=== PATIENT | female | born 1965 | race Caucasian/White ===

== ENCOUNTER 2019-12-02 11:27 | Inpatient (IN) | payer OTHER ==
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
[2019-12-02 12:01] LABS: Basophils # (A) 0.1 k/uL (0-0.2); Basophils % (A) 1 %; Eosinophils % (A) 0 %; Lymphocytes # (A) 1.8 k/uL (1.0-4.8); Lymphocytes % (A) 20 %; MCH 29.5 pg (25.0-35.0); MCHC 33.3 g/dL (31.0-37.0); MCV 88.6 fL (80.0-100.0); Monocytes # (A) 0.6 k/uL (0-1.0); Monocytes % (A) 6 %; Neutrophils # (A) 6.4 k/uL (1.3-7.7); Neutrophils % (A) 71 %; Platelet Count 317 k/uL (150-450); RDW 12.7 % (11.5-15.5)
[2019-12-02 12:06] LABS: ALT 24 U/L (4-49); AST 37 U/L (17-59); African American GFR (CKD) >90 (>60 ml/min/1.73 sqM); Alcohol <10 mg/dL; Alkaline Phosphatase 78 U/L (38-126); Anion Gap 13 mmol/L; Blood Urea Nitrogen 16 mg/dL (9-20); Calcium 9.9 mg/dL (8.4-10.2); Carbon Dioxide 22 mmol/L (22-30); Chloride 105 mmol/L (98-107); Glucose 160 mg/dL (74-99); Non-African American GFR(CKD) >90 (>60 ml/min/1.73 sqM); Potassium 3.5 mmol/L (3.5-5.1); Sodium 140 mmol/L (137-145); Total Bilirubin 0.9 mg/dL (0.2-1.3); Total Protein 7.7 g/dL (6.3-8.2)
[2019-12-02] MEDS ORDERED: LORazepam 2 MG/ML INJ IM STA (12:24)
[2019-12-02] MEDS ORDERED: HALOPERIDOL LACTATE 5 MG/ML 1 ML VIAL IM STA (13:07)
[2019-12-02] MEDS ORDERED: diphenhydrAMINE 50 MG/ML 1 ML VIAL IM STA (13:15)
[2019-12-03 09:34] LABS: Amphetamine Screen,Urine Not Detected (NotDetected); Barbiturate Screen,Urine Not Detected (NotDetected); Benzodiazepines Screen,Urine Detected (NotDetected); Cocaine Screen,Urine Not Detected (NotDetected); Methadone Screen, Urine Not Detected (NotDetected); Opiate Screen,Urine Not Detected (NotDetected); Oxycodone Screen, Urine Not Detected (NotDetected); Phencyclidine Screen,Urine Not Detected (NotDetected); Tricyclic Antidepressant,Urine Not Detected (NotDetected); Urn Cannabinoid Scrn Not Detected (NotDetected)
[2019-12-03] MEDS ORDERED: LORazepam 1 MG TAB PO PRN (10:22)
[2019-12-03] MEDS ORDERED: MAGNESIUM HYDROXIDE 2,400 MG/10 ML CUP PO PRN (10:22)
[2019-12-03] MEDS ORDERED: ACETAMINOPHEN TAB 325 MG TAB PO PRN (10:22)
[2019-12-03] MEDS ORDERED: ZIPRASIDONE 20 MG VIAL IM PRN (10:22)
[2019-12-03] MEDS ORDERED: LORazepam 2 MG/ML INJ IM PRN (10:26)
[2019-12-03] MEDS: OLANZapine 5 MG TAB PO SCH ×3 (12:23→22:07)
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
[2019-12-04] MEDS: OLANZapine 5 MG TAB PO SCH (09:33)
[2019-12-04 09:39] LABS: Basophils % (A) 1 %; Eosinophils # (A) 0.1 k/uL (0-0.7); Eosinophils % (A) 2 %; HCT 40.5 % (34.0-46.0); HGB 12.8 gm/dL (11.4-16.0); Lymphocytes # (A) 1.4 k/uL (1.0-4.8); Lymphocytes % (A) 24 %; MCH 28.2 pg (25.0-35.0); MCHC 31.7 g/dL (31.0-37.0); MCV 88.8 fL (80.0-100.0); Mean Platelet Volume 8.7; Monocytes # (A) 0.4 k/uL (0-1.0); Monocytes % (A) 6 %; Neutrophils # (A) 3.9 k/uL (1.3-7.7); Neutrophils % (A) 66 %; Platelet Count 274 k/uL (150-450); RBC 4.56 m/uL (3.80-5.40); RDW 12.7 % (11.5-15.5); WBC 5.9 k/uL (3.8-10.6)
[2019-12-04 09:56] LABS: Potassium 3.8 mmol/L (3.5-5.1)
[2019-12-04 09:57] LABS: ALT 28 U/L (4-34); AST 46 U/L (14-36); African American GFR (CKD) >90 (>60 ml/min/1.73 sqM); Albumin 4.4 g/dL (3.5-5.0); Alkaline Phosphatase 64 U/L (38-126); Anion Gap 7 mmol/L; Blood Urea Nitrogen 9 mg/dL (7-17); Calcium 9.6 mg/dL (8.4-10.2); Carbon Dioxide 28 mmol/L (22-30); Chloride 101 mmol/L (98-107); Cholesterol 151 mg/dL (<200); Glucose 144 mg/dL (74-99); HDL Cholesterol 80 mg/dL (40-60); LDL Cholesterol,Calculated 62 mg/dL (0-99); Non-African American GFR(CKD) >90 (>60 ml/min/1.73 sqM); Sodium 136 mmol/L (137-145); Total Bilirubin 0.7 mg/dL (0.2-1.3); Triglycerides 44 mg/dL (<150)
[2019-12-04] MEDS: risperiDONE 1 MG TAB PO SCH ×2 (11:34→22:33)
--- NOTE | 2019-12-04 12:46 | P.PN ---
Progress Note - Text Progress Note Date: 12/04/19 Interval History: Patient was seen near the nurse's desk filling out paperwork and was directable and agreeable to speak with contract technical writer in the office. Was noticed to have tissue paper stuffed inside patient's ears. When asked about the tissue paper inside of years patient states that "it's too loud out there and I can concentrate". Patient was fairly illogical, loose with associations and rambled. She appeared to have multiple loosely formed delusions and also spoke about needing to "take over the state". She claims that she came from [place] however states that she has no plans of going back. She claims that she has never been hospitalized in a psychiatric unit. Patient was speaking about "sending a smoke signal" however states that nobody received it. She had several questions for contract technical writer about her diagnosis and also her treatment along with her discharge plan. Patient claims that she has never had a computed tomography scan of her brain before. She claims that she was able to sleep significantly throughout the day and night and claimed to feel fairly lethargic. Patient was agreeable to start a new medication and contract technical writer explained risks and side effects of Risperdal along with the benefits. She claims that she has a fair appetite. At this time patient denies any suicidal or homical ideations, intent or plan. Patient denies any auditory, visual hallucinations. Patient is endorsing significant paranoia. Mental Status Exam: General Appearance: Patient appears to be overweight, stated age is alert, more directable, times and cooperate. Poor hygiene and grooming. Behavior: Patient is calmly seated without any agitated behavior. Speech: Patient's speech is fluent and nonpressured. Rambles. Mood/Affect: Mood is improving mildly, affect is congruent and constricted. Suicidality/Homicidality: Patient denies having any suicidal or homicidal ideation intent or plan. Perceptions: Patient denies any visual hallucinations and denies any auditory hallucinations Though content/process: Patient is loose in associations, illogical, bizarre and endorsing several delusions. Patient is also endorsing paranoia. Memory and concentration: AOX3, grossly intact for the purposes of this session Judgment and insight: Poor, Improving mildly Assessment Psychosis unspecified Plan: -Patient continues to meet criteria for inpatient psychiatric admission for symptom stabilization and safety. Patient has signed adult voluntary form and medication consent and was placed in patient's chart. -Medications: Discontinue Zyprexa due to oversedation and patient is agreeable to start Risperdal 1 mg twice a day for psychosis. -When necessary Ativan and Geodon for agitation/aggression. -NRT - not needed as patient does not smoke. -Ordered computed tomography scan brain for first episode of psychosis. Ordered syphilis and B12. Will order T4 following a elevated TSH. -SW on board for discharge planning. Encouraged the patient to participate in milieu. construction pit worker to attempt to gather further collateral history from patient's .
--- NOTE | 2019-12-04 13:03 | CT ---
EXAMINATION TYPE: CT brain wo con DATE OF EXAM: 12/04/2019 HISTORY: 1st episode psychosis CT DLP: 995.3 mGycm. Automated Exposure Control for Dose Reduction was Utilized. TECHNIQUE: CT scan of the head is performed without contrast. COMPARISON: None FINDINGS: There is no acute intracranial hemorrhage, midline shift, or mass effect identified. Brain volume is age appropriate. The ventricles, sulci, and cisterns are normal in size and configuration. No extra-axial fluid collection. Bones and extracranial soft tissues are intact. The globes are gross ly symmetric. Visualized sinuses and mastoid air cells are clear. IMPRESSION: No acute intracranial hemorrhage, midline shift, or mass effect.
[2019-12-04 18:14] LABS: Hemoglobin A1C 5.1 % (4.0-6.0)
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
[2019-12-05] MEDS: risperiDONE 1 MG TAB PO SCH (09:32)
--- NOTE | 2019-12-05 11:33 | P.PN ---
Progress Note - Text Progress Note Date: 12/05/19 Interval History: Patient was seen sitting on the floor in the middle of her room writing on her box with her belongings and it and was directable and agreeable to speak with senior mortgage underwriter in the office. Patient appeared to be mildly calmer today however continues to ramble and is tangential and continues to endorse loosely formed delusions. 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 Patient's computed tomography scan results were reviewed with her and patient claims that "I'm glad that you did it because now approves that I'm fine and nothing's wrong with me". She continues to display poor insight and judgment however is agreeable to continue with her medications. Patient was agreeable to start Depakote today and have her Risperdal increased. She states that she was able to sleep last night throughout the night with no issues. She claims that her mood has been gradually improving and she claims to be "thinking positively". She continues to respond bizarrely at times to senior mortgage underwriter's questions. She claims that she has a fair appetite. At this time patient denies any suicidal or homical ideations, intent or plan. Patient denies any auditory, visual hallucinations. Patient is denying any paranoia today. Mental Status Exam: General Appearance: Patient appears to be overweight, stated age is alert, more directable, at times attempts to cooperate. Improving hygiene and grooming. Behavior: Patient is calmly seated without any agitated behavior. Speech: Patient's speech is fluent and nonpressured. Rambles. Mood/Affect: Mood is improving mildly, affect is congruent Suicidality/Homicidality: Patient denies having any suicidal or homicidal ideation intent or plan. Perceptions: Patient denies any visual hallucinations and denies any auditory hallucinations Though content/process: Patient is loose in associations, illogical, bizarre and endorsing several delusions, improving mildly. Flight of ideas. Memory and concentration: AOX3, grossly intact for the purposes of this session Judgment and insight: Poor, Improving mildly Assessment: Psychosis unspecified Plan: -Patient continues to meet criteria for inpatient psychiatric admission for symptom stabilization and safety. Patient has signed adult voluntary form and medication consent and was placed in patient's chart. -Medications: Increased Risperdal 1 mg daily +2 mg daily at bedtime for psychosis. I added Depakote 250 mg twice a day for mood stabilization. -When necessary Ativan and Geodon for agitation/aggression. -NRT - not needed as patient does not smoke. -Computed tomography scan brain for first episode of psychosis completed on 12/04/2019 - negative for any acute changes. syphilis - negative, B12 - WNL. elevated TSH, however free T4 is normal. -SW on board for discharge planning. Encouraged the patient to participate in milieu. park worker supervisor to attempt to gather further collateral history from patient's .
[2019-12-05] MEDS: DIVALPROEX 250 MG TABLET.DR PO SCH ×2 (14:09→21:08)
[2019-12-05] MEDS: risperiDONE 2 MG TAB PO SCH (21:09)
[2019-12-06] MEDS ORDERED: risperiDONE 1 MG TAB PO SCH (09:00)
[2019-12-06] MEDS: DIVALPROEX 250 MG TABLET.DR PO SCH ×2 (09:34→20:39)
--- NOTE | 2019-12-06 13:33 | P.PN ---
Progress Note - Text Progress Note Date: 12/06/19 Interval History: Patient was seen this morning in her room talking with her roommate and was di rectable and agreeable to speak with keno writer/runner in the office. Patient appeared to be mildly calmer today and appeared to be mildly more appropriately with keno writer/runner. Patient continues to be tangential and bizarre in her thought content. She claims that she did not take her medications yesterday or this morning and states that "I'm refusing them until I talk with my father". Patient expressed her concerns about the medications and claims that "I feel better off of them". She continues to demonstrate poor insight and judgment. He continues to speak about her "mission" and spoke repeatedly about a house that she needs to go to. She was loose in association and illogical. Patient was also labile in her affect and began crying when speaking about another patient on the unit and states that "she reminds me of my mother and my 2 sisters and the pain that they went through". She claims that she has a fair appetite. At this time patient denies any suicidal or homical ideations, intent or plan. Patient denies any auditory, visual hallucinations. Patient is denying any paranoia today. Mental Status Exam: General Appearance: Patient appears to be overweight, stated age is alert, more directable, bizarre today. Improving hygiene and grooming. Behavior: Patient is calmly seated without any agitated behavior. Bizarre Speech: Patient's speech is fluent and nonpressured. Rambles. Mood/Affect: Mood is improving mildly, affect is congruent Suicidality/Homicidality: Patient denies having any suicidal or homicidal ideation intent or plan. Perceptions: Patient denies any visual hallucinations and denies any auditory hallucinations Though content/process: Patient is loose in associations, illogical, bizarre and endorsing several delusions, improving mildly. Memory and concentration: AOX3, grossly intact for the purposes of this session Judgment and insight: Poor, Improving mildly Assessment: Psychosis unspecified Plan: -Patient continues to meet criteria for inpatient psychiatric admission for symptom stabilization and safety. Patient has signed adult voluntary form and medication consent and was placed in patient's chart. -Medications: Continue with Risperdal 2 mg HS + 1mg daily for psychosis. Continue with Depakote 250 mg twice a day for mood stabilization. Patient has refused medications for the past 2 days, encouraged patient to take medications. -When necessary Ativan and Geodon for agitation/aggression. -NRT - not needed as patient does not smoke. -Computed tomography scan brain for first episode of psychosis completed on 12/04/2019 - negative for any acute changes. syphilis - negative, B12 - WNL. elevated TSH, however free T4 is normal. -SW on board for discharge planning. Encouraged the patient to participate in milieu. The patient continues to refuse medications then we'll need to file for involuntary process.
[2019-12-06] MEDS: risperiDONE 2 MG TAB PO SCH (20:39)
[2019-12-06] MEDS ORDERED: DIVALPROEX 500 MG TABLET.DR PO SCH (21:00)
[2019-12-07] MEDS ORDERED: risperiDONE 2 MG TAB PO SCH (09:00)
[2019-12-07] MEDS: DIVALPROEX 250 MG TABLET.DR PO SCH ×2 (10:20→20:52)
[2019-12-07] MEDS: risperiDONE 1 MG TAB PO SCH (10:20)
--- NOTE | 2019-12-07 10:37 | P.PN ---
Progress Note - Text Progress Note Date: 12/07/19 Interval History: Patient was seen this morning sitting in on group and was directable and agree able to speak with health underwriter in the office. Patient was walking around with her notes and also her books and case full of different things. She claims that "this is my toolbox I need everywhere". Patient appeared to be mildly calmer today and appeared to be mildly more appropriately with health underwriter. Patient continues to be tangential and bizarre in her thought content. Patient appeared to endorse improvement in her insight and judgment and claims that "I know you're trying to help me stay safe and him taking medications now". Patient claims that she is doing better on the medications now and claims that she will continue to take these medications as prescribed. She continues to speak about her "mission" and spoke repeatedly about a house that she needs to go to and at times was bizarre. She was loose in association and illogical, which has been improving. She claims that she has a fair appetite. At this time patient denies any suicidal or homical ideations, intent or plan. Patient denies any auditory, visual hallucinations. Patient is denying any paranoia today. Mental Status Exam: General Appearance: Patient appears to be overweight, stated age is alert, more directable, bizarre today, improving mildly. Improving hygiene and grooming. Behavior: Patient is calmly seated without any agitated behavior. Bizarre, more cooperative today. Speech: Patient's speech is fluent and nonpressured. Rambles. Mood/Affect: Mood is improving mildly, affect is congruent Suicidality/Homicidality: Patient denies having any suicidal or homicidal ideation intent or plan. Perceptions: Patient denies any visual hallucinations and denies any auditory hallucinations Though content/process: Patient is loose in associations, illogical, bizarre which is improving mildly. Memory and concentration: AOX3, grossly intact for the purposes of this session Judgment and insight: Poor, Improving mildly Assessment: Psychosis unspecified Plan: -Patient continues to meet criteria for inpatient psychiatric admission for symptom stabilization and safety. Patient has signed adult voluntary form and medication consent and was placed in patient's chart. -Medications: Continue with Risperdal 2 mg HS + 1mg daily for psychosis. Continue with Depakote 250 mg twice a day for mood stabilization. Patient is not taking her medications and will consider increasing dose tomorrow. -When necessary Ativan and Geodon for agitation/aggression. -NRT - not needed as patient does not smoke. -Computed tomography scan brain for first episode of psychosis completed on 12/04/2019 - negative for any acute changes. syphilis - negative, B12 - WNL. elevated TSH, however free T4 is normal. -SW on board for discharge planning. Encouraged the patient to participate in milieu. The patient is now taking her medications and will look at discharge planning . Hopefully the next 2-3 days.
[2019-12-07] MEDS: MAG HYDROX/AL HYDROX/SIMETH 30 ML CUP PO PRN ×2 (17:32→21:56)
[2019-12-07] MEDS: risperiDONE 2 MG TAB PO SCH (20:52)
[2019-12-08] MEDS: DIVALPROEX 250 MG TABLET.DR PO SCH (09:19)
[2019-12-08] MEDS: risperiDONE 1 MG TAB PO SCH ×2 (09:20→21:11)
[2019-12-08] MEDS: MAG HYDROX/AL HYDROX/SIMETH 30 ML CUP PO PRN (09:21)
[2019-12-08] MEDS ORDERED: ONDANSETRON 4 MG TAB PO PRN (12:21)
--- NOTE | 2019-12-08 12:45 | P.PN ---
Progress Note - Text Progress Note Date: 12/08/19 Interval History: Patient was seen this morning sorting through her belongings in her room and was directable and agreeable to speak with news writer in the office. Patient appeared to be calmer today and more polite with news writer and also more logical and goal oriented during conversation. Patient does however claimed that she is experiencing side effects from medications. She claims that she does feel somewhat drowsy during the day and also that the medications are making her nauseous. Patient continues to be tangential and bizarre in her thought content, however this is improving mildly. 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 Patient states that she will continue to take these medications as prescribed. She continues to speak about her "mission". She claims that she has a fair appetite. At this time patient denies any suicidal or homical ideations, intent or plan. Patient denies any auditory, visual hallucinations. Patient is denying any paranoia today. Mental Status Exam: General Appearance: Patient appears to be overweight, stated age is alert, more directable, improving mildly. Improving hygiene and grooming. Behavior: Patient is calmly seated without any agitated behavior. Bizarre, more cooperative today. Speech: Patient's speech is fluent and nonpressured. Rambles. Mood/Affect: Mood is improving mildly, affect is congruent Suicidality/Homicidality: Patient denies having any suicidal or homicidal ideation intent or plan. Perceptions: Patient denies any visual hallucinations and denies any auditory hallucinations Though content/process: Patient is loose in associations, illogical, bizarre which is improving mildly. Memory and concentration: AOX3, grossly intact for the purposes of this session Judgment and insight: Poor, Improving mildly Assessment: Psychosis unspecified Plan: -Patient continues to meet criteria for inpatient psychiatric admission for symptom stabilization and safety. Patient has signed adult voluntary form and medication consent and was placed in patient's chart. -Medications: Switched Risperdal 2.5 mg HS for psychosis and discontinued morning dose. Discontinued Depakote at this time as this may have been contr ibuting to patient's nausea. If patient continues to have nausea then will likely switch to first generation antipsychotic i.e. Prolixin over the weekend. -Added Zofran when necessary for nausea. -When necessary Ativan and Geodon for agitation/aggression. -NRT - not needed as patient does not smoke. -Computed tomography scan brain for first episode of psychosis completed on 12/04/2019 - negative for any acute changes. syphilis - negative, B12 - WNL. elevated TSH, however free T4 is normal. -SW on board for discharge planning. Encouraged the patient to participate in milieu. The patient is now taking her medications and will look at discharge planning. Hydro Station Operator spoke with patient's Wiley over the phone who states that he will be taking patient back to [place] when she is discharged for follow-up there. Hopefully discharge the next 2-3 days.
[2019-12-09 07:06] VITALS: RESP 16
--- NOTE | 2019-12-09 09:35 | P.PN ---
Progress Note - Text Progress Note Date: 12/09/19 Interval History: Patient was seen this morning after talking on the phone and near the nurse's desk and was directable and agreeable to speak with tech writer in the office. Patient appeared to be calmer today. Patient was also polite with tech writer today and appeared to be more logical and goal oriented during conversation. She claims that her mood and anxiety but improving. She also claims that her nausea has "calmed down" and has been taking the Zofran. She also claims that she had a bowel movement yesterday which is helped her. She claims that she has been in communication with her and is hoping for a possible Wednesday discharge. Patient claimed that she is going to groups and to mean take medications. She states that she was able to sleep throughout the night with no issues. She claims that she has a fair appetite. At this time patient denies any suicidal or homical ideations, intent or plan. Patient denies any auditory, visual hallucinations. Patient is denying any paranoia today. Mental Status Exam: General Appearance: Patient appears to be overweight, stated age is alert, more directable, improving mildly. Improving hygiene and grooming. Behavior: Patient is calmly seated without any agitated behavior. more cooperative today. Speech: Patient's speech is fluent and nonpressured. Rambles. Mood/Affect: Mood is improving mildly, affect is congruent Suicidality/Homicidality: Patient denies having any suicidal or homicidal ideation intent or plan. Perceptions: Patient denies any visual hallucinations and denies any auditory hallucinations Though content/process: Patient is more logical today, goal oriented. Denies any paranoia. Memory and concentration: AOX3, grossly intact for the purposes of this session Judgment and insight: Improving mildly Assessment: Psychosis unspecified Plan: -Patient continues to meet criteria for inpatient psychiatric admission for symptom stabilization and safety. Patient has signed adult voluntary form and medication consent and was placed in patient's chart. -Medications: continue with Risperdal 2.5 mg HS for psychosis and discontinued morning dose. -Continue with Zofran when necessary for nausea. -When necessary Ativan and Geodon for agitation/aggression. -NRT - not needed as patient does not smoke. -Computed tomography scan brain for first episode of psychosis completed on 12/04/2019 - negative for any acute changes. syphilis - negative, B12 - WNL. elevated TSH, however free T4 is normal. -SW on board for discharge planning. Encouraged the patient to participate in milieu. If patient continues to improve over the weekend than likely discharge wednesday.
[2019-12-09] MEDS: risperiDONE 1 MG TAB PO SCH (21:33)
--- NOTE | 2019-12-10 10:02 | P.PN ---
Progress Note - Text Progress Note Date: 12/10/19 Interval History: Patient was seen this morning sitting in on group participating and was direct able and agreeable to speak with customs entry writer in the office. Patient appeared to be calmer today. Patient was also polite with customs entry writer today and appeared to be more logical and goal oriented during conversation. She claims that her mood and anxiety have been improving. She states she did have a "burning in my throat" last night after dinner and was not sure if this was related to acid reflux or not. She states that after she took her nighttime medications it improved and she was able to sleep throughout the night soundly. She claims that she has been in communication with her and he came to visit her yesterday and is hoping for a possible Wednesday discharge. She also states that her sees a big improvement in her. Patient claimed that she is going to groups and to mean take medications. She claims that she has a fair appetite. At this time patient denies any suicidal or homical ideations, intent or plan. Patient denies any auditory, visual hallucinations. Patient is denying any paranoia today. Mental Status Exam: General Appearance: Patient appears to be overweight, stated age is alert, more directable, improving mildly. Improving hygiene and grooming. Behavior: Patient is calmly seated without any agitated behavior. more cooperative today. Speech: Patient's speech is fluent and nonpressured. Rambles. Mood/Affect: Mood is improving mildly, affect is congruent Suicidality/Homicidality: Patient denies having any suicidal or homicidal ideation intent or plan. Perceptions: Patient denies any visual hallucinations and denies any auditory hallucinations Though content/process: Patient is more logical today, goal oriented. Denies any paranoia. Memory and concentration: AOX3, grossly intact for the purposes of this session Judgment and insight: Improving mildly Assessment: Psychosis unspecified Plan: -Patient continues to meet criteria for inpatient psychiatric admission for symptom stabilization and safety. Patient has signed adult voluntary form and medication consent and was placed in patient's chart. -Medications: continue with Risperdal 2.5 mg HS for psychosis/mood stabilization -Continue with Zofran when necessary for nausea. -When necessary Ativan and Geodon for agitation/aggression. -NRT - not needed as patient does not smoke. -Computed tomography scan brain for first episode of psychosis completed on 12/04/2019 - negative for any acute changes. syphilis - negative, B12 - WNL. elevated TSH, however free T4 is normal. -SW on board for discharge planning. Encouraged the patient to participate in milieu. If patient continues to improve over the weekend than likely discharge wednesday.
[2019-12-10] MEDS: risperiDONE 1 MG TAB PO SCH (21:12)
[2019-12-11 06:42] VITALS: BP 119/76; PULSE 92; TEMP 98.2
[2019-12-11 07:18] LABS: HGB 12.8 gm/dL (11.4-16.0); RBC 4.33 m/uL (3.80-5.40)
[2019-12-11 07:19] LABS: HCT 38.4 % (34.0-46.0)
--- NOTE | 2019-12-11 09:15 | P.DS ---
Providers Date of admission: 12/03/19 10:19 Expected date of discharge: 12/11/19 Attending physician: Malachi Cordova MD Consults: 12/03/19 10:22 Consult Physician Routine Consulting Provider: Kelley Physician Consult Reason/Comments: medical management Do you want consulting provider notified?: Yes Primary care physician: Stated None - Discharge Diagnosis(es) (1) Unspecified psychosis Current Visit: Yes Status: Acute Priority: High Hospital Course: Admission HPI: The patient was completed by Dr. Mejía "the patient is a 54-year-old female who currently resides with her . The 2 of them live in [facility]. The patient has been in [place] for 2 weeks taking care of some state issues. She was brought to the ED for evaluation. The patient was confused and disorganized in thoughts and behavior. She was in family house and was breaking items in the house. Information was provided by the patient and her . The patient herself was somewhat disorganized in her thoughts. The patient has not had a psychiatric prior hospitalization. She has not had any past mental health intervention. She has not been on any psychotropic medications in the past. The patient has had a lot of high stress of grief situations over the last year or more. Both she and her described her as being a critical family member for the extended family. She has provided a lot of support for her grandmother mother and others. She apparently had lost her grandmother and another family member in the last year. It is also noted that her mother was hospitalized psychiatrically [place] and then ultimately suicide also the last year. The patient came up from her home in [place] to take care of estate issues with the grandmother's house. According to the she has been here for 2 weeks and for the first 3 days or so she deemed to be doing quite well. The says that she got quite involved in sorting out family heirlooms. This may have set off a lot of emotional things for her in that there were photographs and other important family memorabilia. The says this got to a point where the last 5 days she essentially has not slept at all. She got very overly involved in many details in the house. Apparently this somehow lead to the point where she became overwhelmed, confused and disorganized in her behavior to the point of smashing things in the house. It is unclear specifically what set off the final affect that got her to the hospital. Somehow the police were involved though the details are not clear. The was able to acknowledge that the patient was probably struggling with depression on and off for at least over a year. She has not sought treatment. In general she has been functioning well throughout the year. She has a lot of demands in her own work situation and she has been able to keep up with her work until the events of the last 2 weeks. It is unclear whether or not the patient has had any hallucinations. It does appear that she disordered thinking to the point of being delusional. It is difficult to clarify whether she has had any past issues in the realm of anxiety, panic or posttraumatic issues. She is not currently on any psychotropic medications. She is admitted for further evaluation." Hospital course: Upon admission to the unit patient was initially bizarre and disorganized. Patient was however directable and agreeable to commence treatment. Patient got along well with other patients on the unit and followed unit protocol. Patient was compliant with the medications initially however for 1 day patient did not take her medications. Patient did experience some minor side effects including nausea/vomiting from likely the Depakote. Patient was started on Risperdal and titrated up to a dose of 2.5 mg daily at bedtime for psychosis/mood st abilization.. Patient spoke of her stressors and engaged in therapy both group and individual. Patient was also seen by medical team for history and physical exam. Patient had a computed tomography scan of her brain which showed no acute intracranial hemorrhage midline shift or mass effect. Patient also had a syphilis test which was negative, B12 levels were within normal limit and patient also had an elevated TSH however free T4 was normal. Throughout the course of the hospitalization patient gradually improved with regards to mood, psychosis/disorganized thoughts, sleep and became future oriented with improved insight and judgment. On the day of discharge patient denied any suicidal or homicidal ideations intent or plan denied any auditory or visual hallucinations. Patient endorsed wanting to live for her health and her future. Patient denied any paranoia and did not endorse any delusions. Patient does not have a significant history of substance abuse however was counseled on abstaining from all substances including alcohol and marijuana. Patient was also counseled on the medications and need for regular compliance and was encouraged to follow-up with their outpatient appointment for mental health and also for primary care. Prior to discharge a family meeting will be arranged by social services counselor to answer any questions and ensure safety upon discharge. Mental status exam: General Appearance: Patient appears to be overweight, has short hair, stated age is alert, pleasant, and cooperative. Patient is in no acute distress and has improved hygiene and grooming Behavior: Patient is calmly seated without any agitated behavior. Speech: Patient's speech is fluent and nonpressured. Mood/Affect: Patient reports their mood is "better", affect is congruent and euthymic. Suicidality/Homicidality: Patient denies having any suicidal or homicidal ideation intent or plan. Perceptions: Patient denies any auditory or visual hallucinations. Though content/process: There is no evidence of any delusional thought content and thought process is linear and goal-directed. more future oriented Memory and concentration: AOX3, grossly intact for the purposes of this session. Can spell "WORLD" backwards correctly. Judgment and insight: improved with guarded prognosis Impression: Psychosis unspecified Plan: -Continue with discharge today as patient has improved and stabilized psychiatrically and is not currently an imminent threat to herself and/or others. -Continue medications: Continue with Risperdal 2.5 mg daily at bedtime for psychosis/mood stabilization. Patient will also be prescribed a small supply of Zofran when necessary for nausea. -Patient was counseled on the need for medication compliance and appropriate follow-up at mental health and also primary care for medical issues. Patient verbalized understanding and agreed. -Social work to arrange for and conduct family meeting to ensure safety upon discharge and answer any questions/concerns. Social work also to arrange for patients follow up appointments for psychiatric care along with follow up with primary care provider. Patient will likely be leaving town back to [place] and will be likely following up with an outpatient psychiatrist in her town of [place]. -Patient counseled on abstaining from recreational drugs and marijuana and alcohol. Was informed/educated on the adverse effects on their physical and mental health. Patient verbally agreed and understood. -Patient was instructed to return to the hospital or seek immediate medical care if their psychiatric or medical symptoms do worsen or reoccur. Allergies Allergy/AdvReac Type Severity Reaction Status Date / Time codeine Allergy Anaphylaxis Verified 12/03/19 10:53 Laboratory Results WBC 5.9 k/uL (3.8-10.6) 12/04/19 09:18 RBC 4.56 m/uL (3.80-5.40) 12/04/19 09:18 Hgb 12.8 gm/dL (11.4-16.0) 12/04/19 09:18 Hct 40.5 % (34.0-46.0) 12/04/19 09:18 MCV 88.8 fL (80.0-100.0) 12/04/19 09:18 MCH 28.2 pg (25.0-35.0) 12/04/19 09:18 MCHC 31.7 g/dL (31.0-37.0) 12/04/19 09:18 RDW 12.7 % (11.5-15.5) 12/04/19 09:18 Plt Count 274 k/uL (150-450) 12/04/19 09:18 Neutrophils % 66 % 12/04/19 09:18 Lymphocytes % 24 % 12/04/19 09:18 Monocytes % 6 % 12/04/19 09:18 Eosinophils % 2 % 12/04/19 09:18 Basophils % 1 % 12/04/19 09:18 Neutrophils # 3.9 k/uL (1.3-7.7) 12/04/19 09:18 Lymphocytes # 1.4 k/uL (1.0-4.8) 12/04/19 09:18 Monocytes # 0.4 k/uL (0-1.0) 12/04/19 09:18 Eosinophils # 0.1 k/uL (0-0.7) 12/04/19 09:18 Basophils # 0.0 k/uL (0-0.2) 12/04/19 09:18 Sodium 136 mmol/L (137-145) L 12/04/19 09:18 Potassium 3.8 mmol/L (3.5-5.1) 12/04/19 09:18 Chloride 101 mmol/L (98-107) 12/04/19 09:18 Carbon Dioxide 28 mmol/L (22-30) 12/04/19 09:18 Anion Gap 7 mmol/L 12/04/19 09:18 BUN 9 mg/dL (7-17) 12/04/19 09:18 Creatinine 0.73 mg/dL (0.52-1.04) 12/04/19 09:18 Est GFR (CKD-EPI)AfAm >90 (>60 ml/min/1.73 sqM) 12/04/19 09:18 Est GFR (CKD-EPI)NonAf >90 (>60 ml/min/1.73 sqM) 12/04/19 09:18 Glucose 144 mg/dL (74-99) H 12/04/19 09:[address] Glu mg/dL 100 12/04/19 09:18 Hemoglobin A1c 5.1 % (4.0-6.0) 12/04/19 09:18 Calcium 9.6 mg/dL (8.4-10.2) 12/04/19 09:18 Total Bilirubin 0.7 mg/dL (0.2-1.3) 12/04/19 09:18 AST 46 U/L (14-36) H 12/04/19 09:18 ALT 28 U/L (4-34) 12/04/19 09:18 Alkaline Phosphatase 64 U/L (38-126) 12/04/19 09:18 Total Protein 7.0 g/dL (6.3-8.2) 12/04/19 09:18 Albumin 4.4 g/dL (3.5-5.0) 12/04/19 09:18 Triglycerides 44 mg/dL (<150) 12/04/19 09:18 Cholesterol 151 mg/dL (<200) 12/04/19 09:18 LDL Cholesterol, Calc 62 mg/dL (0-99) 12/04/19 09:18 HDL Cholesterol 80 mg/dL (40-60) H 12/04/19 09:18 Vitamin B12 640.0 pg/mL (200.0-944.0) 12/04/19 09:18 TSH 11.500 mIU/L (0.465-4.680) H 12/04/19 09:18 Free T4 1.21 ng/dL (0.78-2.19) 12/02/19 11:46 Urine Opiates Screen Not Detected (NotDetected) 12/03/19 08:45 Ur Oxycodone Screen Not Detected (NotDetected) 12/03/19 08:45 Urine Methadone Screen Not Detected (NotDetected) 12/03/19 08:45 Ur Propoxyphene Screen Not Detected (NotDetected) 12/03/19 08:45 Ur Barbiturates Screen Not Detected (NotDetected) 12/03/19 08:45 U Tricyclic Antidepress Not Detected (NotDetected) 12/03/19 08:45 Ur Phencyclidine Scrn Not Detected (NotDetected) 12/03/19 08:45 Ur Amphetamines Screen Not Detected (NotDetected) 12/03/19 08:45 U Methamphetamines Scrn Not Detected (NotDetected) 12/03/19 08:45 U Benzodiazepines Scrn Detected (NotDetected) H 12/03/19 08:45 Urine Cocaine Screen Not Detected (NotDetected) 12/03/19 08:45 U Marijuana (THC) Screen Not Detected (NotDetected) 12/03/19 08:45 Serum Alcohol <10 mg/dL 12/02/19 11:46 Treponema pallidum Ab Non-Reactive (Non-Reactive) 12/04/19 09:18 Vital Signs Temp 98.2 F 12/11/19 06:39 Pulse 92 12/11/19 06:39 Resp 16 12/11/19 06:39 BP 119/76 12/11/19 06:39 Pulse Ox 96 12/08/19 09:18 Intake & Output 12/10/19 12/11/19 12/11/19 18:59 06:59 18:59 Weight 87.2 kg Patient Condition at Discharge: Stable Plan - Discharge Summary New Discharge Prescriptions: New risperiDONE [RisperDAL] 2.5 mg PO HS 30 Days tab Ondansetron [Zofran] 4 mg PO Q8HR PRN #10 tab PRN Reason: Nausea And Vomiting Discharge Medication List Ondansetron [Zofran] 4 mg PO Q8HR PRN #10 tab 12/11/19 [Rx] risperiDONE [RisperDAL] 2.5 mg PO HS 30 Days tab 12/11/19 [Rx] Follow up Appointment(s)/Referral(s): Nonstaff,Physician [REFERRING] - 1-2 days Activity/Diet/Wound Care/Special Instructions: Activity and diet as tolerated. Avoid the use of street drugs and alcohol. Take all medications as prescribed. When you are in need of refills on your medications please contact your medical provider and/or outpatient psychiatrist to have this done. Please go to scheduled outpatient appointment for aftercare treatment. If symptoms return or become worse, call the crisis line at and/or go to the nearest emergency room for evaluation. normal free T4, consider follow up on Tsh and Free T4 in 4-6 weeks Discharge Disposition: HOME SELF-CARE
== END 2019-12-11 12:40 | disposition home or self-care (01) | DRG 885 ==
LOC: EDSEX 11:27 → EC 11:27 → 3MHU 12-03 10:19
PROVIDERS: ADMIT Psychiatry & Neurology Psychiatry; ATTEND Psychiatry & Neurology Psychiatry
DX: F29 Unspecified psychosis not due to a substance or known physiological condition (principal); F32.9 Major depressive disorder, single episode, unspecified; F41.9 Anxiety disorder, unspecified; E66.3 Overweight; Z68.33 Body mass index [BMI] 33.0-33.9, adult; Z81.8 Family history of other mental and behavioral disorders; R94.6 Abnormal results of thyroid function studies; Z83.3 Family history of diabetes mellitus; Z82.49 Family history of ischemic heart disease and other diseases of the circulatory system; Z88.5 Allergy status to narcotic agent
CPT/HCPCS: 36415; 70450; 80053; 80061; 80306; 80320; 82607; 83036; 84439; 84443; 85025; 86780; 93005; 96372; 99285